=== PATIENT | male | born 1995 | race Caucasian/White ===

== ENCOUNTER 2021-04-12 20:11 | Emergency (ER) | payer BC ==
[2021-04-12] MEDS ORDERED: Sodium Chloride 0.9% 2.5 ML Syringe FLUSH PRN (20:21)
[2021-04-12] MEDS ORDERED: Sodium Chloride 0.9% 10 ML Syringe FLUSH PRN (20:21)
[2021-04-12] MEDS: Ondansetron 4 MG/2 ML SDV IVPUSH ONE (20:52)
[2021-04-12] MEDS: Sodium Chloride 0.9% 1,000 ML IV ONE ×2 (20:52→22:54)
--- NOTE | 2021-04-12 20:55 | EDM.PDOC ---
<Jordan Grier - Last Filed: 04/13/21 00:10> ED HPI GENERAL MEDICAL PROBLEM - General Chief Complaint: General Stated Complaint: POSSIBLE HEAT STROKE Time Seen by Provider: 04/12/21 20:21 - History of Present Illness INITIAL COMMENTS - FREE TEXT/NARRATIVE: 12:02 AM: Patient signed out to me at 10 PM. This is a 26-year-old gentleman with no significant history other than history for Klippel-Feil syndrome who presents ER today with signs and symptoms and concerns of he did not secondary to being outdoors working in extreme weather. Patient received IV fluids and labs have been ordered when it was identified that he has markedly abnormal labs. Patient has a normal CPK, a elevated WBC count with a left shift and elevated lactic acid level. Patient also has acute renal failure that does not appear to be prerenal. Patient has a creatinine of 3.9 and a BUN of 39 which gives a 10:1 ratio. Patient had a potassium of 6.4 with an EKG did not show any significant abnormalities that would be secondary to his hyperkalemia other than a slightly prolonged QT interval. In the ED, the patient was given 3 L of NSS in his BMP was repeated. Patient's BMP is still markedly abnormal with a creatinine now 3.6 and a BUN still of 39. Patient's potassium level did improve at 4.4. After 3 L, the patient did produce approximately 100 cc of urine that was sent. Patient does not have any evidence of rhabdomyolysis on the urinalysis and his CPK was not markedly elevated. Patient was given a dose of Zosyn in the ED secondary to possible sepsis. His chest x-ray was unremarkable and his abdominal CT scan was negative for any active process. Given his elevated lactic acid, his elevated WBC, his left shift, and his acute renal failure, patient will be placed on the sepsis protocol with receiving 30mL/kg of saline and LR as well as IV antibiotics. Case was discussed with [facility] however they are currently at capacity is unable to accept the patient for transfer. Case was discussed with [facility] and have discussed the case with Dr. griffin who has agreed to assist us with accepting patient for transfer. At this time, only for transportation available for patient until 8 AM would be fixed wing transport. At this time, it is midnight and I do not feel the patient would be safe staying in the ED without nephrology consult for greater than 12 hours as his earliest arrival to [facility] would be 1 PM which is approximately 13 hours from current time. Given the time sensitive matter of his acute kidney failure and the need for emergent nephrological consultation and possible dialysis with his hyperkalemia, I feel the patient will need to be transferred by fixed wing to [facility]. I do not feel that it would be safe for the patient to go by ground transport with a 5-hour time delay by traveling by ground not even mentioning the delay when ground transport would become available. Critical Care: The high probability of sudden, clinically significant deter ioration in the patient's condition required the highest level of my preparedness to intervene urgently. The services I provided to this patient were to treat and/or prevent clinically significant deterioration. Services included the following: chart data review, reviewing nursing notes and/or old charts, documentation time, automotive internet sales consultant collaboration regarding findings and treatment options, medication orders and management, direct patient care, vital sign assessments and ordering, interpreting and reviewing diagnostic studies/lab tests. Aggregate critical care time includes only time during which I was engaged inwork directly related to the patient's care, as described above, whether at the bedside or elsewhere in the Emergency Department. It did not include time spent performing other reported procedures or the services of residents, students, nurses or physician assistants. Critical Care Time: 35 minutes - Related Data Allergies Allergy/AdvReac Type Severity Reaction Status Date / Time red dye Allergy Other Verified 04/12/21 20:56 Home Meds: Home Meds . [No Known Home Meds] 04/12/21 [History] ED ROS GENERAL - Review of Systems Review Of Systems: See Below ED EXAM, GENERAL - Physical Exam Exam: See Below #1 Interpretation EKG Interpretation Comments: EKG: As interpreted by ER physician: Mravel: Nonspecific ST-T wave abnormalities Normal axis No stigmata of hyperkalemia other than slightly prolonged QT interval of 0.[address] elevation [place] Normal sinus rhythm heart rate of 82 Departure - Departure Time of Disposition: 00:08 Disposition: DC/Tfer to [facility] 02 Condition: Good Clinical Impression: Hyperkalemia, Elevated lactic acid level Acute renal failure Qualifiers: Acute renal failure type: unspecified Qualified Code(s): N17.9 - Acute kidney failure, unspecified Sepsis Qualifiers: Sepsis type: sepsis due to unspecified organism Sepsis acute organ dysfunction status: with acute organ dysfunction Severe sepsis acute organ dysfunction type: acute renal failure Acute renal failure type: unspecified Severe sepsis shock status: without septic shock Qualified Code(s): A41.9 - Sepsis, unspecified organism Heat exhaustion Qualifiers: Encounter type: initial encounter Qualified Code(s): T67.5XXA - Heat exhaustion, unspecified, initial encounter Leukocytosis Qualifiers: Leukocytosis type: bandemia Qualified Code(s): D72.825 - Bandemia - Discharge Information Referrals: PCP,None [Primary Care Provider] - Forms: ED Department Discharge <Ruby Tariqmerry Singh - Last Filed: 04/14/21 10:00> ED HPI GENERAL MEDICAL PROBLEM - General Source of Information: Reports: Patient History Limitations: Reports: No Limitations - History of Present Illness INITIAL COMMENTS - FREE TEXT/NARRATIVE: HISTORY AND PHYSICAL: History of present illness: Patient is a 26-year-old male who presents to the emergency room with concerns of heatstroke. Today he was out in layers of clothing at 106 F temperatures for 12+ hours at a time. He states he did not drink much water and was excessively sweating. When he got home he attempted to drink liquids but became nauseated and unable to keep anything down. He has been vomiting for the past 6 hours. Patient denies any fever, chills, headache, change in vision, syncope or near syncope. Denies any chest pain, back pain, shortness of breath or cough. Denies any diarrhea, constipation or dysuria. Has not noted any blood in urine or stool. Patient has been eating and drinking appropriately. Patient has a history of Klippel Feil Syndrome with vertebrae fusion. Review of systems: As per history of present illness and below otherwise all systems reviewed and negative. Past medical history: As per history of present illness and as reviewed below otherwise noncontributory. Surgical history: As per history of present illness and as reviewed below otherwise noncontributory. Social history: See social history for further information Family history: As per history of present illness and as reviewed below otherwise noncontributory. Physical exam: General: Well developed and well nourished 26 year old male. Alert and orientated x 3. Nontoxic in appearance and in no acute distress. Vital signs are stable and have been reviewed by me. Nursing notes were reviewed. HEENT: Atraumatic, normocephalic, pupils equal and reactive bilaterally, negative for conjunctival pallor or scleral icterus, mucous membranes moist, trachea midline. Normal variance of cervical spine fusion/stiff with limited ROM. No drooling or trismus noted. No meningeal signs. No hot potato voice noted. Lungs: Clear to auscultation bilaterally. No wheezes, rales, or rhonchi. Chest nontender. Normal work of breathing, no accessory muscles used. Heart: S1S2, tachycardia with regular rhythm without overt murmur, gallops, or rubs. No JVD. No peripheral edema Abdomen: Soft, nondistended, nontender. Normoactive bowel sounds. Negative for masses or costovertebral tenderness. Skin: Intact, warm, dry. No lesions or rashes noted. Hematologic: No petechiae or purpra. Mucosa appropriate color and normal nail bed color and refill. Extremities: Atraumatic, ambulatory, moves all extremities per self without difficulty or deficits (see HEENT). Neurovascular unremarkable. Neuro: Awake, alert, oriented. Cranial nerves II through XII unremarkable. Cerebellum unremarkable. Motor and sensory unremarkable throughout. Exam nonf ocal. Psychiatric: Mood and affect are appropriate. Normal thought process. Answering questions appropriately. Notes: *This patient was seen and evaluated during the 2019 SARS-CoV-2 novel coronaviru s pandemic period. Community viral transmission is ongoing at time of this encounter and the emergency department is operating under pandemic response procedures. Patient is a 26-year-old male who presents to the emergency room with concerns of nausea, vomiting and dehydration. 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 He states he did not drink much water during that period. When he got home he was unable to keep any fluids down. Patient is actively dry heaving during the interview and is tachycardic. We will do basic lab work along with IV fluids and Zofran at this time. Patient does have several abnormal lab values including a WBC of 32.82 (H), H&H of 19/53.8 (H), K 6.4 (H), BUN/creatinine of 31/3.9 (H). His CPK is 262. Vital signs remained stable, heart rate is down to the 90s. Patient states he felt somewhat better after his first liter of fluids but now is starting to feel nauseated again. He continues to have left lower quadrant abdominal pain. Due to his GFR and BUN/creatinine we will do a CT of the abdomen and pelvis without contrast. Additional lab work has been added on due to abnormal lab values. Patient's diagnostics/imaging results have not all returned. 2200: Dr Grier was made aware of this patient and will follow remaining results. Patient will likely be admitted, he is aware and agreeable to plan of care. Diagnostics: CBC, CMP, CPK, UA, EKG Therapeutics: IV fluids, Zofran, Insulin, D50, Calcium gluconate, Bicarb Definitive disposition and diagnosis as appropriate pending reevaluation and review of above. general Pain Score (Numeric/FACES): 7 ED ROS GENERAL - Review of Systems Review Of Systems: Comprehensive ROS is negative, except as noted in HPI. ED EXAM, GENERAL - Physical Exam Exam: See Below (See dictation) Course - Vital Signs Last Recorded V/S: Last Vital Signs Temp 97.7 F 04/13/21 00:28 Pulse 96 04/13/21 00:28 Resp 15 04/13/21 00:28 BP 144/70 H 04/13/21 00:28 Pulse Ox 98 04/13/21 00:28 - Orders/Labs/Meds Labs: Laboratory Tests 04/12/21 04/12/21 04/12/21 Range/Units 20:50 20:50 21:46 WBC 32.82 H (4.0-11.0) K/uL RBC 5.94 H (4.50-5.90) M/uL Hgb 19.1 H (13.0-17.0) g/dL Hct 53.8 H (38.0-50.0) % MCV 90.6 (80.0-98.0) fL MCH 32.2 H (27.0-32.0) pg MCHC 35.5 (31.0-37.0) g/dL RDW Std Deviation 40.4 (28.0-62.0) fl RDW Coeff of Padmini 12 (11.0-15.0) % Plt Count 385 (150-400) K/uL MPV 11.20 (7.40-12.00) fL Add Manual Diff YES Neutrophils % (Manual) 74 (48.0-80.0) % Band Neutrophils % 7 % Lymphocytes % (Manual) 4 L (16.0-40.0) % Monocytes % (Manual) 15 (0.0-15.0) % Nucleated RBC % 0.0 /100WBC Absolute Seg Neuts 24.3 H (1.4-5.7) Band Neutrophils # 2.3 Lymphocytes # (Manual) 1.3 (0.6-2.4) Monocytes # (Manual) 4.9 H (0.0-0.8) Nucleated RBCs # 0 K/uL Sodium 142 (136-148) mmol/L Potassium 6.4 H (3.5-5.1) mmol/L Chloride 98 (98-107) mmol/L Carbon Dioxide 25.9 (21.0-32.0) mmol/L BUN 31 H (7.0-18.0) mg/dL Creatinine 3.9 H (0.8-1.3) mg/dL Est Cr Clr Drug Dosing 20.30 mL/min Estimated GFR (MDRD) 18.8 ml/min Glucose 183 H (74-106) mg/dL Lactic Acid 5.8 H* (0.4-2.0) mmol/L Calcium 11.2 H (8.5-10.1) mg/dL Total Bilirubin 1.0 (0.2-1.0) mg/dL AST 27 (15-37) IU/L ALT 43 (14-63) IU/L Alkaline Phosphatase 127 H (46-116) U/L Creatine Kinase 262 (26-308) U/L Total Protein 10.2 H (6.4-8.2) g/dL Albumin 6.6 H (3.4-5.0) g/dL Globulin 3.6 (2.6-4.0) g/dL Albumin/Globulin Ratio 1.8 H (0.9-1.6) Urine Color Urine Appearance Urine pH (5.0-8.0) Ur Specific Cowley (1.001-1.035) Urine Protein (NEGATIVE) mg/dL Urine Glucose (UA) (NEGATIVE) mg/dL Urine Ketones (NEGATIVE) mg/dL Urine Occult Blood (NEGATIVE) Urine Nitrite (NEGATIVE) Urine Bilirubin (NEGATIVE) Urine Urobilinogen (<2.0) EU/dL Ur Leukocyte Esterase (NEGATIVE) Urine RBC (0-2/HPF) Urine WBC (0-5/HPF) Ur Epithelial Cells (NONE-FEW) Urine Bacteria (NEGATIVE) Urine Mucus (NONE-MOD) SARS-CoV-2 RNA (ZAFAR) (NEGATIVE) 04/12/21 04/12/21 04/12/21 Range/Units 22:09 22:52 23:42 WBC (4.0-11.0) K/uL RBC (4.50-5.90) M/uL Hgb (13.0-17.0) g/dL Hct (38.0-50.0) % MCV (80.0-98.0) fL MCH (27.0-32.0) pg MCHC (31.0-37.0) g/dL RDW Std Deviation (28.0-62.0) fl RDW Coeff of Padmini (11.0-15.0) % Plt Count (150-400) K/uL MPV (7.40-12.00) fL Add Manual Diff Neutrophils % (Manual) (48.0-80.0) % Band Neutrophils % % Lymphocytes % (Manual) (16.0-40.0) % Monocytes % (Manual) (0.0-15.0) % Nucleated RBC % /100WBC Absolute Seg Neuts (1.4-5.7) Band Neutrophils # Lymphocytes # (Manual) (0.6-2.4) Monocytes # (Manual) (0.0-0.8) Nucleated RBCs # K/uL Sodium 144 (136-148) mmol/L Potassium 4.4 (3.5-5.1) mmol/L Chloride 104 (98-107) mmol/L Carbon Dioxide 27.8 (21.0-32.0) mmol/L BUN 31 H (7.0-18.0) mg/dL Creatinine 3.5 H (0.8-1.3) mg/dL Est Cr Clr Drug Dosing 22.62 mL/min Estimated GFR (MDRD) 21.3 ml/min Glucose 149 H (74-106) mg/dL Lactic Acid (0.4-2.0) mmol/L Calcium 9.6 (8.5-10.1) mg/dL Total Bilirubin (0.2-1.0) mg/dL AST (15-37) IU/L ALT (14-63) IU/L Alkaline Phosphatase (46-116) U/L Creatine Kinase (26-308) U/L Total Protein (6.4-8.2) g/dL Albumin (3.4-5.0) g/dL Globulin (2.6-4.0) g/dL Albumin/Globulin Ratio (0.9-1.6) Urine Color YELLOW Urine Appearance CLEAR Urine pH 7.5 (5.0-8.0) Ur Specific Cowley 1.015 (1.001-1.035) Urine Protein TRACE H (NEGATIVE) mg/dL Urine Glucose (UA) 100 H (NEGATIVE) mg/dL Urine Ketones TRACE H (NEGATIVE) mg/dL Urine Occult Blood NEGATIVE (NEGATIVE) Urine Nitrite NEGATIVE (NEGATIVE) Urine Bilirubin NEGATIVE (NEGATIVE) Urine Urobilinogen 0.2 (<2.0) EU/dL Ur Leukocyte Esterase NEGATIVE (NEGATIVE) Urine RBC 0-2 (0-2/HPF) Urine WBC 0-2 (0-5/HPF) Ur Epithelial Cells RARE (NONE-FEW) Urine Bacteria RARE (NEGATIVE) Urine Mucus LIGHT (NONE-MOD) SARS-CoV-2 RNA (ZAFAR) NEGATIVE (NEGATIVE) Meds: Medications Discontinued Medications Generic Name Dose Route Start Last Admin Trade Name Freq PRN Reason Stop Dose Admin Calcium Gluconate 1 gm 04/12/21 21:33 04/12/21 21:59 Calcium Gluconate 10% 1 Gm/10 Ml Sdv IVPUSH 04/12/21 21:34 1 gm ONETIME ONE Administration Dextrose/Water 50 ml 04/12/21 21:32 50% Dextrose In Water 50 Ml Syringe IVPUSH ASDIRECTED PRN Hypoglycemia Dextrose/Water 50 ml 04/12/21 21:33 04/12/21 21:59 50% Dextrose In Water 50 Ml Syringe IVPUSH 04/12/21 21:34 50 ml ONETIME ONE Administration Glucagon 1 mg 04/12/21 21:32 Glucagon,Human Recombinant 1 Mg Vial IM ASDIRECTED PRN Hypoglycemia Sodium Chloride 1,000 mls @ 999 mls/hr 04/12/21 20:22 04/12/21 20:52 Normal Saline IV 04/12/21 21:22 999 mls/hr STAT ONE Administration Lactated Ringer's 1,000 mls @ 999 mls/hr 04/12/21 21:27 04/12/21 21:57 Ringers, Lactated IV 04/12/21 22:27 999 mls/hr NOW STA Administration Piperacillin Sod/Tazobactam 100 mls @ 100 mls/hr 04/12/21 21:31 04/12/21 21:59 Sod 4.5 gm/ Sodium Chloride IV 04/12/21 22:30 100 mls/hr ONETIME ONE Administration Sodium Chloride 1,000 mls @ 999 mls/hr 04/12/21 22:46 04/12/21 22:54 Normal Saline IV 04/12/21 23:46 999 mls/hr .Bolus ONE Administration Insulin Human Regular 10 unit 04/12/21 21:32 04/12/21 21:59 Insulin Regular, Human 100 Units/Ml 10 Ml Vial IVPUSH 04/12/21 21:33 10 units ONETIME ONE Administration Protocol Ondansetron HCl 4 mg 04/12/21 20:44 04/12/21 20:52 Ondansetron 4 Mg/2 Ml Sdv IVPUSH 04/12/21 20:45 4 mg ONETIME ONE Administration Sodium Bicarbonate 50 meq 04/12/21 21:34 04/12/21 21:57 Sodium Bicarbonate 8.4% 50 Meq/50 Ml Syringe IVPUSH 04/12/21 21:35 50 meq ONETIME ONE Administration Sodium Chloride 10 ml 04/12/21 20:21 Sodium Chloride 0.9% 10 Ml Syringe FLUSH ASDIRECTED PRN Keep Vein Open Sodium Chloride 2.5 ml 04/12/21 20:21 Sodium Chloride 0.9% 2.5 Ml Syringe FLUSH ASDIRECTED PRN Keep Vein Open
[2021-04-12 21:23] LABS: CARBON DIOXIDE,CO2 25.9 mmol/L (21.0-32.0); POTASSIUM,K 6.4 mmol/L (3.5-5.1)
[2021-04-12] MEDS ORDERED: 50% Dextrose in Water 50 ML Syringe IVPUSH PRN (21:32)
[2021-04-12] MEDS ORDERED: Glucagon,Human Recombinant 1 MG Vial IM PRN (21:32)
[2021-04-12] MEDS: Lactated Ringers 1,000 ML IV STA (21:57)
[2021-04-12] MEDS: Sodium Bicarbonate 8.4% 50 MEQ/50 ML Syringe IVPUSH ONE (21:57)
[2021-04-12] MEDS: Insulin Regular, Human 100 Units/ML 10 ML Vial IVPUSH ONE (21:59)
[2021-04-12] MEDS: Calcium Gluconate 10% 1 GM/10 ML SDV IVPUSH ONE (21:59)
[2021-04-12] MEDS: Piperacillin/Tazobactam 4.5 GM in Sodium Chloride 0.9% 100 ML IV ONE (21:59)
[2021-04-12] MEDS: 50% Dextrose in Water 50 ML Syringe IVPUSH ONE (21:59)
--- NOTE | 2021-04-12 22:18 | CR ---
For Patients: As a result of the Cures Act, medical imaging exams and procedure reports are released immediately into your electronic medical record. You may view this report before your referring provider. If you have questions, please contact your health care provider. INDICATION: Chest pain, shortness of breath TECHNIQUE: Chest radiograph 1 view COMPARISON: None FINDINGS: Mediastinum: The mediastinum is normal in appearance. The heart silhouette is normal in size and morphology. Lung: Both lungs are unremarkable in appearance. No sign of pleural effusion seen. No pneumothorax is identified. Bone and Soft tissue: Scattered bilateral rib fusion, butterfly vertebra within the upper and lumbar spine are noted. Disconnected neurostimulator leads are seen over the right hemithorax. IMPRESSION: 1. No acute cardiopulmonary disease is seen. Dictated by Frank Victoria MD @ 04/12/2021 10:18:03 PM Dictated by: Frank Victoria MD @ 04/12/2021 22:18:07 (Electronically Signed)
--- NOTE | 2021-04-12 22:27 | CT ---
HISTORY: Abdominal pain. COMPARISON: None. TECHNIQUE: CT of the abdomen and pelvis. No intravenous contrast. Coronal/sagittal reconstruction images. FINDINGS: Lung bases: There is no pleural or pericardial effusion. The heart size is normal. There is no acute airspace disease. There is no basilar pneumothorax. There is a partially visualized catheter present about the posterior chest wall, seen best on the associate counsel image. Abdomen/pelvis: The liver morphology is non cirrhotic. There is no radiopaque gallstone. There is no adrenal mass. There is no hydronephrosis. There is no perinephric fluid collection. The spleen size is normal. There is no pancreatic mass or pancreatic duct dilation. There is no glandular atrophy. Urinary bladder is normal. There is no free intraperitoneal air. There is no pneumoperitoneum. There is no bowel obstruction. There is no pelvic sidewall or inguinal lymphadenopathy. There is no evidence for appendicitis. The appendix is seen best on image 95, series 201. The appendix measures 7 mm in dimension. There is no abdominal or pelvic lymphadenopathy. Spinal dysraphism is noted. There is no acute bone lesion. Questionable caudal regression syndrome noted on sagittal reconstruction images, which should be correlated with the patient`s history. IMPRESSION: 1. There are no acute findings seen to explain abdominal pain. 2. Normal caliber appendix. No inflammatory changes. 3. No bowel obstruction, free air, drainable fluid collection. 4. There is no hydronephrosis or perinephric edema. Please note that all CT scans at this facility use dose modulation, iterative reconstruction, and/or weight-based dosing when appropriate to reduce radiation dose to as low as reasonably achievable. Dictated by Rikki Coleman MD @ 04/14/2021 10:37:[address] Rikki Coleman @ Apr 14 2021 10:37AM
[2021-04-12 23:10] LABS: CARBON DIOXIDE,CO2 27.8 mmol/L (21.0-32.0); POTASSIUM,K 4.4 mmol/L (3.5-5.1)
== END 2021-04-13 00:43 ==
LOC: MW.ED 20:11
DX: T67.5XXA Heat exhaustion, unspecified, initial encounter (principal); A41.9 Sepsis, unspecified organism; R65.20 Severe sepsis without septic shock; N17.9 Acute kidney failure, unspecified; R74.01 Elevation of levels of liver transaminase levels; D72.825 Bandemia; E87.5 Hyperkalemia; Z91.048 Other nonmedicinal substance allergy status; Z20.822 Contact with and (suspected) exposure to COVID-19
CPT/HCPCS: 36415; 71045; 74176; 80048; 80053; 81001; 82550; 83605; 85025; 87040; 87635; 93005; 96365; 96375; 99285; J0610; J2405; J2543; J7030; J7120; J1815-GY; U0002